=== PATIENT | female | born 1940 | race Caucasian/White ===

== ENCOUNTER 2016-12-15 05:47 | Day surgery (SDC) | payer MEDICARE, OTHER ==
[~2016-12-15] VITALS: Ht 165.1 cm; Wt 61.0 kg
--- NOTE | 2016-12-22 09:10 | OR ---
ADMIT: 12/15/2016 RM/LOC: [facility] MR#: [id number] [id number] EZEQUIEL ZHOU [address] [place] [address] Operative/Delivery Room Report SEX: F AGE: 75 : 1940 SURGERY DATE: 12/15/2016 SURGEON: Alberto Warren MD PREOPERATIVE DIAGNOSIS: Epigastric ventral incisional hernia. POSTOPERATIVE DIAGNOSIS: Epigastric ventral incisional hernia. PROCEDURE: Repair of epigastric ventral incisional hernia with 8 cm Ventralex mesh. HR PAYROLL COORDINATOR: SNEHA Jordan whose assistance was necessary for tissue retraction and exposure in the operative field. ANESTHESIA: General endotracheal. ESTIMATED BLOOD LOSS: 10 mL. DESCRIPTION OF PROCEDURE: The patient was taken to the operating room and placed supine on the operating room table. General anesthesia was established. The abdomen was prepped and draped in the standard surgical fashion. A transverse incision was made through the prior surgical scar at the subxiphoid position. Dissection proceeded through the subcutaneous tissue to the hernia sac. The hernia sac was dissected away from the tissue back to the fascial margins. The sac was opened and excised from the fascial margins circumferentially. The fascial defect measured nearly 4.5 cm in diameter. Because of the size, a decision was made for mesh repair. An 8 cm Ventralex mesh was placed intraabdominally with good overlap of the defect. This was secured circumferentially in a transfascial manner with 0 silk suture. This provided good overlap with no tension. Primary fascial closure over the mesh was attempted, but this was again under tension, so it was not closed primarily overlying this. The deep subcutaneous tissue was closed with 2-0 Vicryl suture. Skin edges were approximated with 4-0 Monocryl in a subcuticular fashion and Dermabond. Local anesthetic was injected. Sponge, needle, and instrument counts were correct at the end of the case. The patient tolerated the procedure well and transferred to the recovery area in stable condition. Alberto Warren MD/ irena JOB #: [id number] CC: Alberto Warren, Attending Physician Chung Pepper, Family Physician
== END 2016-12-15 14:34 | disposition home or self-care (01) ==
LOC: SSS 05:47
PROC: 0WUF0JZ Supplement Abdominal Wall with Synthetic Substitute, Open Approach (ICD-10-PCS; principal; 2016-12-15)
DX: K43.2 Incisional hernia without obstruction or gangrene (principal); E78.5 Hyperlipidemia, unspecified; Z79.899 Other long term (current) drug therapy; Z90.49 Acquired absence of other specified parts of digestive tract; Z90.710 Acquired absence of both cervix and uterus